=== PATIENT | male | born 1955 | race Two or more races ===

== ENCOUNTER 2017-11-05 07:23 | Outpatient (CLI) | payer OTHER | END 2017-11-05 17:00 | disposition home or self-care (01) | LOC: MRI 07:23 | DX: M25.561 Pain in right knee (principal); M25.461 Effusion, right knee | CPT/HCPCS: 73721 ==

== ENCOUNTER 2017-11-24 06:37 | Outpatient (CLI) | payer OTHER | END 2017-11-24 07:05 | disposition home or self-care (01) | LOC: EKG 06:37 | DX: I10 Essential (primary) hypertension (principal) ==

== ENCOUNTER 2017-11-24 06:41 | Outpatient (CLI) | payer OTHER | END 2017-11-24 07:00 | disposition home or self-care (01) | LOC: LAB 06:41 | DX: D68.8 Other specified coagulation defects (principal); E78.2 Mixed hyperlipidemia; N39.0 Urinary tract infection, site not specified ==

== ENCOUNTER 2017-12-01 06:00 | Day surgery (SDC) | payer OTHER ==
[2017-12-01] MEDS ORDERED: PERCOCET 5-3251 EACH PO (09:35)
[2017-12-01] MEDS ORDERED: NABUMETONE500 MG PO (09:35)
== END 2017-12-01 13:25 | disposition home or self-care (01) ==
LOC: CIR.AMB 06:00
DX: M23.311 Other meniscus derangements, anterior horn of medial meniscus, right knee (principal); M23.321 Other meniscus derangements, posterior horn of medial meniscus, right knee; M65.861 Other synovitis and tenosynovitis, right lower leg; M13.861 Other specified arthritis, right knee; M22.41 Chondromalacia patellae, right knee

== ENCOUNTER 2021-10-07 11:01 | Outpatient (CLI) | payer OTHER ==
[~2021-10-07 11:01] MED LIST: NABUMETONE500 MG PO; PERCOCET 5-3251 EACH PO
== END 2021-10-07 11:11 | disposition home or self-care (01) ==
LOC: TOM 11:01
PROVIDERS: ATTEND Otolaryngology Otology & Neurotology
DX: H92.12 Otorrhea, left ear (principal); H82.2 Vertiginous syndromes in diseases classified elsewhere, left ear

== ENCOUNTER 2024-01-06 06:17 | Emergency (ER) | payer OTHER ==
[~2024-01-06] VITALS: Ht 167.6 cm; Wt 73.0 kg
[2024-01-06] MEDS ORDERED: LOSARTAN POTASS50 MG (06:29)
[2024-01-06] MEDS ORDERED: KETOROLAC TROMETHAMINE 30 MG VIAL IM STA (08:26)
== END 2024-01-06 08:49 | disposition home or self-care (01) ==
LOC: ER 06:18
DX: M25.562 Pain in left knee (principal)

== ENCOUNTER 2024-03-01 07:06 | Outpatient (CLI) | payer OTHER ==
[~2024-03-01 07:06] MED LIST changes: +LOSARTAN POTASS50 MG
== END 2024-03-01 07:42 | disposition home or self-care (01) ==
LOC: RAD 07:06
PROVIDERS: ATTEND Chiropractor
DX: M99.01 Segmental and somatic dysfunction of cervical region (principal); M99.02 Segmental and somatic dysfunction of thoracic region; M99.03 Segmental and somatic dysfunction of lumbar region

== ENCOUNTER 2024-12-01 14:40 | Emergency (ER) | payer OTHER ==
[~2024-12-01] VITALS: Ht 167.6 cm; Wt 75.7 kg
[2024-12-01] MEDS ORDERED: ONDANSETRON HCL 2 MG/ML VIAL ONE (16:56)
[2024-12-01] MEDS ORDERED: DICYCLOMINE HCL 10 MG CAPSULE PO ONE (16:56)
[2024-12-01] MEDS ORDERED: FAMOTIDINE/PF 20 MG/2 ML VIAL ONE (16:56)
[2024-12-01] MEDS ORDERED: DICYCLOMINE HCL 20 MG TABLET PO ONE (17:00)
[2024-12-01] MEDS ORDERED: FAMOtidine 10 MG/ML (4ML VIAL) IV ONE (17:00)
[2024-12-01] MEDS ORDERED: ONDANSETRON HCL 2 MG/ML VIAL IV ONE (17:00)
[2024-12-01 18:00] LABS: HEMOGLOBIN 15.1 g/dL (13-16.00); MEAN CELL VOLUME 88.8 fL (80.0-100.00); MEAN CORPUSCULAR HEMOGLOBIN 31.1 pg (27.00-32.0); PLATELET COUNT 201 K/uL (150-450); RED BLOOD COUNT 4.84 M/uL (4.00-6.00); RED CELL DISTRIBUTION WIDTH 13.1 % (11.5-14.5)
[2024-12-01 18:21] LABS: ALBUMIN 4.2 gm/dL (3.4-5.0); BILIRUBIN TOTAL 0.37 mg/dL (0.3-1.2); CALCIUM 9.1 mg/dL (8.5-10.1); CREATININE SERUM 0.82 mg/dL (0.70-1.30); GFR 93.71; GLOBULINA 3.9 G/DL (2.4-3.5); POTASSIUM 4.22 mEq/L (3.5-5.1); TOTAL PROTEIN 8.1 gm/dL (6.4-8.2)
[2024-12-01] MEDS ORDERED: ZOFRAN8 MG PO (23:04)
[2024-12-01] MEDS ORDERED: DICY20TA PO (23:04)
[2024-12-01] MEDS ORDERED: PEPCID AC20 MG PO (23:04)
== END 2024-12-01 23:38 | disposition home or self-care (01) ==
LOC: ER 14:43
PROVIDERS: General Practice
DX: K29.70 Gastritis, unspecified, without bleeding (principal); R10.9 Unspecified abdominal pain; R11.10 Vomiting, unspecified; I10 Essential (primary) hypertension
CPT/HCPCS: 36415; 71045; 74177; 93005; 96365; 99284; J2405; J3490; Q9965